=== PATIENT | female | born 1955 | race Caucasian/White ===

== ENCOUNTER 2016-10-01 08:37 | Emergency (ER) | payer BC ==
--- NOTE | ~2016-10-01 | ER ---
PATIENT'S NAME: DEAN DELGADO [facility] AGE: 61 Y [address] ROOM: [place] [address] LOCATION: ED ADMIT DATE: 10/01/2016 ER/Outpatient Report DISCHARGE DATE: 10/01/2016 FAMILY PHYSICIAN: Apoorva Rogers ATTENDING PHYSICIAN: Phillip Choi CHIEF COMPLAINT: Right back pain. HISTORY OF PRESENT ILLNESS: The patient states yesterday afternoon, she developed some pain in her right lower back. It does radiate around her right hip to the front. It does not hurt in the front it is in the back. It is not in the midline, it is right of midline. She denies any new numbness, tingling, or weakness different from her usual numbness, tingling, or weakness associated from diabetes. She denies any bowel or bladder retention or incontinence. No other acute issues. Her Tylenol with codeine does help somewhat. No other issues. PAST MEDICAL HISTORY: Documented on the record and reviewed by me. SOCIAL HISTORY: Documented on the record and reviewed by me. MEDICATIONS: Documented on the record and reviewed by me. ALLERGIES: DOCUMENTED ON THE RECORD AND REVIEWED BY ME. REVIEW OF SYSTEMS: All systems were reviewed and negative except as noted in the HPI. PHYSICAL EXAMINATION: VITAL SIGNS: Blood pressure 176/77, pulse is 67, respiratory rate is 18, temperature 97.5, and SpO2 is 99% on room air. Pain is rated at 10/10. GENERAL: An age appropriate female, in intermittent moderate pain. No respiratory distress. NEUROLOGIC: Awake and alert. GCS 15. No focal deficits. No asymmetry. No weakness of the bilateral lower extremities. Symmetric exam. Normal rectal tone. Normal perineal sensation. HEENT: Normocephalic and atraumatic. Eyes are PERRL. Oropharynx clear. NECK: Supple. Trachea is midline. CHEST/HEART: Regular rate and rhythm. No murmurs. LUNGS: Clear to auscultation bilaterally. No rhonchi, wheezes, or rales. PATIENT'S NAME: DEAN DELGADO [facility] AGE: 61 Y [address] ROOM: [place] [address] LOCATION: ED ADMIT DATE: 10/01/2016 ER/Outpatient Report DISCHARGE DATE: 10/01/2016 FAMILY PHYSICIAN: Apoorva Rogers ATTENDING PHYSICIAN: Phillip Choi ABDOMEN: Soft, nontender, and nondistended. No rebound or guarding. BACK: Back is normal to inspection and palpation along the spine. The right SI joint at the proximal aspects have some discomfort to palpation. No masses, no warmth otherwise. EXTREMITIES: Otherwise normal to inspection on palpation. No deformities appreciated. Straight leg test does not exacerbate her pain. SKIN: No rashes. LABORATORY DATA: Labs and x-rays none. IMPRESSION: Right-sided sacroiliitis versus lumbago. EMERGENCY DEPARTMENT COURSE: The patient was seen and evaluated as above. She had full active and passive range of motion of the right hip making septic joint extremely unlikely. Her presentation is not consistent with cauda equina syndrome or epidural abscess. The ability to palpate the exact source of her pain over the right SI joint makes sacroiliitis much more likely. We will give her some ibuprofen and tramadol in the emergency department. This did help somewhat. I am recommending tramadol for pain control in addition to anti-inflammatory medications. This will help her feel much better. She needs to follow up on Monday with her primary care physician, if not improved. She is to return, if there are any neurologic findings. MD PUJA GARCIA/salomel /[id number] d: 10/01/16 175 t: 10/11/161932, OUTPATIENT REPORT
[~2016-10-01 08:37] MED LIST: ACETAMINOPHEN-1 EAC1 PO; ADVIL200 MG PO; ASPIRIN EC500 MG PO; BENADRYL25 MG PO; DELTASONE10 MG PO; DELTASONE20 MG PO; HUMALOG100 UNIT/1 SUB-Q; HUMULIN R100 UNIT/1 SUB-Q; LANTUS (IN100 UNIT/M SUB-Q; NOVOLOG100 UNIT/M SUB-Q; PREDNISONE20 MG PO; TUMS REGULAR ST1 TAB PO; VENTOLIN HFA8 GM INH
== END 2016-10-01 10:46 | disposition disaster alternative care site (69) ==
LOC: GMED 08:37
DX: M54.5 Low back pain (principal); E11.9 Type 2 diabetes mellitus without complications; J45.909 Unspecified asthma, uncomplicated; Z88.0 Allergy status to penicillin; Z88.1 Allergy status to other antibiotic agents; Z88.8 Allergy status to other drugs, medicaments and biological substances; Z79.899 Other long term (current) drug therapy; Z79.82 Long term (current) use of aspirin; Z79.4 Long term (current) use of insulin; Z96.41 Presence of insulin pump (external) (internal); Z90.89 Acquired absence of other organs; Z98.890 Other specified postprocedural states